=== PATIENT | female | born 1945 | race Caucasian/White ===

== ENCOUNTER 2024-12-05 08:06 | Outpatient (CLI) | payer MEDICARE, SELFPAY ==
--- NOTE | ~2024-12-05 | MR_ITS ---
EXAMINATION: MR shoulder RT wo con DATE: 12/05/2024 09:03 INDICATION: Generalized right shoulder pain and popping post injury 3 months prior. TECHNIQUE: Magnetic resonance imaging (MRI) of the right shoulder was performed without intravenous c ontrast. Sequences included axial PD-weighted FS FSE, coronal oblique PD-weighted FS FSE, coronal obl ique T2-weighted FS FSE, sagittal PD-weighted FS FSE, and sagittal T1-weighted SE. COMPARISON: None. FINDINGS: There is mild motion artifact on the nonfat saturated sequences and moderate motion artifact on all o f the fat-saturated images which mildly limits evaluation. Coracoacromial arch: The acromion undersurface is flat in morphology (type I) with changes of prior acromioplasty and dist al clavicle resection. Rotator cuff: There are suture anchors along the superior facet of the greater tuberosity and at the cephalad aspec t of the lesser tuberosity consistent with prior rotator cuff repair. Mild subscapularis tendinopathy without discrete tear. There is a recurrent full-thickness tear the lung superior facet footplate of the supraspinatus tendon and with 3.5 cm medial retraction of the tear margin. Moderate tendinopathy and conjoined portion of the supraspinatus and infraspinatus tendons and mild tendinopathy more post erior infraspinatus tendon, both without discrete tear. The teres minor tendon is normal. There is mi ld retraction of the supraspinatus muscle belly resulting in a concave margin to the cephalad surface of the muscle belly at the level of the supraspinatus fossa but fatty muscular atrophy. Biceps tendon, glenoid labrum and glenohumeral cartilage: Bicipital tenodesis with anchor site at the proximal humeral diaphysis. Could not exclude a tear at t he superior glenoid labrum however evaluation is significantly limited by the motion artifact. The re mainder of the labrum appears normal. Assessment of the articular cartilage is similarly limited vasquez deena there does appear to be partial-thickness chondral ulceration at the posterior superomedial aspec t of the humeral head. Fluid: Small glenohumeral joint effusion which extends to the full-thickness rotator cuff tear defect to ind icate with a small amount of fluid in the subacromial/subdeltoid bursa. No loose osteochondral bodies . Bones: Normal marrow signal with no edema, fracture or abnormal marrow replacing process. IMPRESSION: 1. Status post prior bicipital tenodesis and likely subscapularis and supraspinatus tendon repairs wi th recurrent tear along the superior facet footplate of the supraspinatus tendon. 2. Some motion artifact which mildly limits evaluation primarily the assessment of the cartilage and labrum. Mild glenohumeral osteoarthritis with possible tear at the superior labrum however assessment is not consider diagnostic. 2. Additional postoperative change of prior acromioplasty and distal clavicle resection. Reviewed, dictated and finalized at location [employer] IMPRESSION: 1. Status post prior bicipital tenodesis and likely subscapularis and supraspin atus tendon repairs with recurrent tear along the superior facet footplate of t he supraspinatus tendon. 2. Some motion artifact which mildly limits evaluation primarily the assessment of the cartilage and labrum. Mild glenohumeral osteoarthritis with possible te ar at the superior labrum however assessment is not consider diagnostic. 2. Additional postoperative change of prior acromioplasty and distal clavicle r esection.
== END 2024-12-05 08:07 | disposition home or self-care (01) ==
LOC: MICIMG 08:07
PROVIDERS: PCP Family Medicine; Visit Provider Orthopaedic Surgery
DX: S49.91XA Unspecified injury of right shoulder and upper arm, initial encounter (principal); X58.XXXA Exposure to other specified factors, initial encounter
CPT/HCPCS: 73221

== ENCOUNTER 2024-12-17 10:43 | Outpatient (RCR) | payer MEDICARE, SELFPAY ==
--- NOTE | 2024-12-17 12:09 | OPREHPOC ---
Outpatient Therapy Plan of Care This is a Multidisciplinary Plan of Care that may contain components documented by all disciplines (PT, OT, and ST.) PT Problem 1 PT Problem #1 Knowledge Deficit PT Goal 1 Goal / Goal Update Independent with HEP. Target Visit 4 PT Problem 2 PT Problem #2 Pain PT Goal 1 Goal / Goal Update Pt to report no more than 5/10 pain with movement. Pt to be able to sleep through the night without pain interference. Target Visit 10 PT Problem 3 PT Problem #3 Impaired Strength PT Goal 1 Goal / Goal Update Improve gross R shoulder strength to 4+/5. Improve gross R shoulder strength to 4+/5 for improved functional use of the arm. Target Visit 10 PT Problem 4 PT Problem #4 Impaired Range of Motion PT Goal 1 Goal / Goal Update Improve shoulder flexion AROM to 150 degrees. Improve shoulder abduction AROM to 170 degrees. Target Visit 10 PT Problem 5 PT Problem #5 Impaired Functional Mobility PT Goal 1 Goal / Goal Update Pt to report more than 20% improvement in QuickDASH score. Pt to be able to carry 15lbs 200ft at elbow level to simulate carrying firewood and pots/pans for household tasks. Target Visit 10
--- NOTE | 2024-12-17 12:09 | PTOPEVAL1 ---
Assessment and note entered by Noreen Mccoy, PT Evaluation Information Assessment Status Evaluation ICD-10 Condition Codes (PT) Pain in right shoulder M25.511,Weakness R53.1 Other ICD-10 Condition Codes ( M75.101, M12.811 PT) Subjective Information Mrs. Velarde reports 4 years ago she tore her rotator cuff after a fall, and she states that her pain is starting up again. She got a cortisone shot in the shoulder two days ago which has helped somewhat. Her pain is intermittent in nature and aching, and can refer to the shoulder blade and down the arm. She has difficulty lifting things and currently feels like her shoulder is irritated from cleaning the bathroom this morning. Pain is also increased by reaching out to the side, vacuuming, and carrying objects. Pain also wakes her up frequently at night, and she sleeps on her L side. Reported Pain Level Pain Score 5: Self Report Assessment PT Clinical Summary Mrs. Velarde presents to physical therapy with R shoulder pain after feeling a pop in her shoulder. She demonstrates intermittent aching pain with AROM, generalized shoulder weakness, and overall impaired functional use of the arm. These deficits are consistent with rotator cuff tear as indicated on MRI. Pain increases with lateral reaching, lifting and carrying objects, dressing, and performing household tasks such as cooking and vacuuming. She will benefit from skilled physical therapy services to improve R shoulder strength and ROM to return to prior level of function and household tasks. Plan of Care Interventions Electrical Stimulation,Hot Pack/Cold Pack,Manual Therapy,Neuro Re-education,Patient/Caregiver Education,Therapeutic Activities,Therapeutic Exercise,Self-Care/Home Management PT Services Indicated Yes Treatment Frequency and 2x/week for 10 visits Duration These treatments will address the objective and functional deficits as defined above. The patient will be advanced safely and appropriately in order for the patient to progress towards his/her prior level of function. Additional exercises will be introduced and as well as a comprehensive home exercise program upon discharge, if needed, ?to ensure carryover of functional gains achieved in the clinic. This treatment plan has been reviewed and agreement upon by the patient.
--- NOTE | 2025-01-20 10:07 | OPREHPOC ---
Outpatient Therapy Plan of Care This is a Multidisciplinary Plan of Care that may contain components documented by all disciplines (PT, OT, and ST.) PT Problem 1 PT Problem #1 Knowledge Deficit PT Goal 1 Goal / Goal Update Independent with HEP. Target Visit 4 Progress Met PT Problem 2 PT Problem #2 Pain PT Goal 1 Goal / Goal Update Pt to report no more than 5/10 pain with movement. -met Pt to be able to sleep through the night without pain interference. -not met Target Visit 10 Progress Partially Met PT Problem 3 PT Problem #3 Impaired Strength PT Goal 1 Goal / Goal Update Improve gross R shoulder strength to 4+/5. Improve gross R shoulder strength to 4+/5 for improved functional use of the arm. Target Visit 10 Progress Partially Met PT Problem 4 PT Problem #4 Impaired Range of Motion PT Goal 1 Goal / Goal Update Improve shoulder flexion AROM to 150 degrees. Improve shoulder abduction AROM to 170 degrees. Target Visit 10 Progress Not Met PT Problem 5 PT Problem #5 Impaired Functional Mobility PT Goal 1 Goal / Goal Update Pt to report more than 20% improvement in QuickDASH score. Pt to be able to carry 15lbs 200ft at elbow level to simulate carrying firewood and pots/pans for household tasks. Target Visit 10 Progress Not Met
--- NOTE | 2025-01-20 10:07 | PTOPPROG ---
Assessment and note entered by Noreen Mccoy, PT Evaluation Information Assessment Status Progress ICD-10 Condition Codes (PT) Pain in right shoulder M25.511,Weakness R53.1 Other ICD-10 Condition Codes ( M75.101, M12.811 PT) Onset 10/16/24 Subjective Information Ginger reports feeling like her strength and ROM have improved since starting therapy. She still continues to have intermittent pain, some days feeling pain-free and other days having pain with movement and functional tasks. Today she has pain that she thinks may be related to the weather and arthritis. Assessment PT Clinical Summary Mrs. Velarde has attended 10 total skilled physical therapy visits addressing R shoulder pain. Since beginning therapy she has made good improvements in her strength and ROM, but still experiences intermittent pain and weakness that limits her ability to carry items and perform household tasks . She will benefit from continued skilled physical therapy intervention to continue making progress to be able to perform functional tasks with less pain. Plan of Care Interventions Electrical Stimulation,Hot Pack/Cold Pack,Manual Therapy,Neuro Re-education,Patient/Caregiver Education,Therapeutic Activities,Therapeutic Exercise,Self-Care/Home Management PT Services Indicated Yes Treatment Frequency and 2x/weeks for 6 additional visits Duration These treatments will address the objective and functional deficits as defined above. The patient will be advanced safely and appropriately in order for the patient to progress towards his/her prior level of function. Additional exercises will be introduced and as well as a comprehensive home exercise program upon discharge, if needed, ?to ensure carryover of functional gains achieved in the clinic. This treatment plan has been reviewed and agreement upon by the patient.
--- NOTE | 2025-01-22 09:43 | PCPTNOTE ---
Cancelled session. Did not realize she was scheduled for today.
--- NOTE | 2025-02-10 10:03 | OPREHPOC ---
Outpatient Therapy Plan of Care This is a Multidisciplinary Plan of Care that may contain components documented by all disciplines (PT, OT, and ST.) PT Problem 1 PT Problem #1 Knowledge Deficit PT Goal 1 Goal / Goal Update Independent with HEP. Target Visit 4 Progress Met PT Problem 2 PT Problem #2 Pain PT Goal 1 Goal / Goal Update Pt to report no more than 5/10 pain with movement. -met Pt to be able to sleep through the night without pain interference. -not met Target Visit 10 Progress Partially Met PT Problem 3 PT Problem #3 Impaired Strength PT Goal 1 Goal / Goal Update Improve gross R shoulder strength to 4+/5. Improve gross R shoulder strength to 4+/5 for improved functional use of the arm. Target Visit 10 Progress Met PT Problem 4 PT Problem #4 Impaired Range of Motion PT Goal 1 Goal / Goal Update Improve shoulder flexion AROM to 150 degrees. met Improve shoulder abduction AROM to 170 degrees. not met Target Visit 10 Progress Partially Met PT Problem 5 PT Problem #5 Impaired Functional Mobility PT Goal 1 Goal / Goal Update Pt to report more than 20% improvement in QuickDASH score. not met Pt to be able to carry 15lbs 200ft at elbow level to simulate carrying firewood and pots/pans for household tasks. met Target Visit 10 Progress Partially Met
--- NOTE | 2025-02-10 10:03 | PTOPDC ---
Assessment and note entered by JT File, PT Evaluation Information Assessment Status Discharge ICD-10 Condition Codes (PT) Pain in right shoulder M25.511,Weakness R53.1 Other ICD-10 Condition Codes ( M75.101, M12.811 PT) Onset 10/16/24 Subjective Information patient reports she is feeling good overall. she reports she is still limited in lifting some heavier things with the R arm. she reports she has her do all the heavier lifting for her. she reports she knows she will have to continue with the exercises at home. she reports she was recently able to cut the grass without issues. she reports she does have to sleep with a towel to support the R arm in bed. Reported Pain Level Pain Score 0: Self Report Assessment PT Clinical Summary mrs. francois presents to skilled PT for her 16th skilled PT visit today. she has met or partially met all goals for skilled PT today. she is confident she is ready to DC therapy today. she will continue her HEP independent at home. Plan of Care PT Services Indicated Yes
== END 2025-02-10 21:14 | disposition home or self-care (01) ==
LOC: CHSPT 10:43
PROVIDERS: Visit Provider Orthopaedic Surgery
DX: M75.101 Unspecified rotator cuff tear or rupture of right shoulder, not specified as traumatic (principal); M12.811 Other specific arthropathies, not elsewhere classified, right shoulder
CPT/HCPCS: 97014; 97110; 97112; 97140; 97150; 97161; G0283